=== PATIENT | male | born 1985 | race Caucasian/White ===

== ENCOUNTER → 2017-12-29 | Outpatient (CLI) | payer BC | LOC: GMATM 14:10 | PROVIDERS: ATTEND Nurse Practitioner Family | DX: R10.13 Epigastric pain (principal) ==

== ENCOUNTER 2018-05-14 23:53 | Emergency (ER) | payer BC ==
[2018-05-14] MEDS ORDERED: SODIUM CHLORIDE 0.9% 1000ML 1,000 ML IVS PRN (23:57)
[2018-05-14] MEDS ORDERED: SODIUM CHLORIDE 0.9% (FLUSH) 10 ML SYG IV PRN (23:57)
[2018-05-14] MEDS ORDERED: ONDANSETRON INJ 4 MG/2 ML VIAL IV ONE (23:57)
--- NOTE | 2018-05-15 00:05 | ED.PDOC ---
History of Present Illness - General Chief Complaint: Abdominal Pain Stated Complaint: sharp abd pain Time Seen by Provider: 05/15/18 00:05 Information Source: patient Exam Limitations: no limitations - History of Present Illness Initial Comments: Javy Perales 33 y/o male stated that he had sudden onset of sharp mid abdominal pains about 30 minutes ago no radiating followed by 2 episodes of n/ v.No diarrhea,no dysuria,or hematuria.had history of passing out kidney stones in the past.Last one about 2 1/2 weeks ago but stated does not feel its kidney stone.Ate 2 hours ago but felt no pain immediately after eating.CT abd/p- diffuse hepatic steatosis,no gallstones,bilateral nephrolithiasis non obstructing,done last week.Has appointment with urologist 2017 Abdominal Pain Onset Location: other - mid abdomen Pain Radiation: no radiation Quality: sharpness, steady Timing/Duration: 1-3 hours Improving Factors: nothing Associated Symptoms: diaphoresis Review of Systems - Review of Systems Constitutional: States: no symptoms reported EENTM: States: no symptoms reported Respiratory: States: no symptoms reported Cardiology: States: no symptoms reported Gastrointestinal/Abdominal: States: see HPI Genitourinary: States: no symptoms reported Musculoskeletal: States: no symptoms reported Skin: States: no symptoms reported Neurological: States: no symptoms reported Endocrine: States: no symptoms reported Hematologic/Lymphatic: States: no symptoms reported Past Medical History (General) - Patient Medical History Hx Other PMH: Yes - nephrolithiasis Surgical History: no surgical history - Social History Hx Tobacco Use: No Hx Alcohol Use: No Hx Substance Use: No Hx Physical Abuse: No Hx Emotional Abuse: No Family Medical History - Family History Father Hx Family Hypertension: Yes Hx Family Diabetes: Yes Hx Family;Other: kidney stone Mother Hx Family Hypertension: Yes - pulmonary Physical Exam - Physical Exam General Appearance: Alert, Comfortable, No apparent distress Eyes, Ears, Nose, Throat Exam: PERRL/EOMI, normal ENT inspection Neck: non-tender, full range of motion, supple, normal inspection Respiratory: chest non-tender, lungs clear, normal breath sounds Cardiovascular/Chest: normal peripheral pulses, regular rate, rhythm, no murmur Peripheral Pulses: No deficit Gastrointestinal/Abdominal: normal bowel sounds, non tender, soft, no organomegaly Back Exam: no CVA tenderness, no vertebral tenderness Extremity: no pedal edema, no calf tenderness Neurologic: alert, oriented x 3 Skin Exam: normal color, warm/dry Progress - Progress Progress: 05/15/18 00:36 Vital Signs - 8 hr 05/14/18 23:59 Temperature 96.2 F L Pulse Rate [ 74 left] Respiratory 18 Rate Blood Pressure 146/73 [left] O2 Sat by Pulse 99 Oximetry 05/15/18 03:19 feeling better using his cellphone. - Results/Orders Results/Orders: 05/14/18 23:57 IV Care:Saline Lock per Protoc QSHIFT Sodium Chloride 0.9% (Flush) [Saline Flush Syringe] 10 ml IV PRN PRN Sodium Chloride 0.9% 1000ML [Ns 1000 ml] 1,000 ml IVS .QD EKG STAT 05/15/18 00:34 Hold Metformin x 48Hrs [id number] 05/15/18 01:27 Strain Urine PRN 05/15/18 23:57 EKG STAT Laboratory Results - last 24 hr 05/14/18 05/14/18 05/15/18 23:57 23:57 00:04 WBC 11.5 H RBC 4.85 Hgb 14.9 Hct 43.6 MCV 89.9 MCH 30.7 MCHC 34.2 RDW 13.1 Plt Count 219 MPV 10.1 Absolute Neuts (auto) 7.40 H Absolute Lymphs (auto) 2.90 Absolute Monos (auto) 0.90 H Absolute Eos (auto) 0.20 Absolute Basos (auto) 0.10 Neutrophils % 64.6 Lymphocytes % 25.7 Monocytes % 7.6 Eosinophils % 1.7 Basophils % 0.4 Sodium 142 Potassium 3.6 Chloride 107 Carbon Dioxide 25 Anion Gap 13.6 BUN 15 Creatinine 1.20 BUN/Creatinine Ratio 12.5 Random Glucose 161 H Serum Osmolality 287.4 Calcium 9.4 Total Bilirubin 0.8 Direct Bilirubin 0.2 Indirect Bilirubin 0.6 AST 35 ALT 54 Alkaline Phosphatase 119 Creatine Kinase CK-MB (CK-2) CK-MB (CK-2) % Troponin I Serum Total Protein 8.0 Albumin 4.3 Amylase 79 Lipase 48 Urine Color Yellow Urine Appearance Clear Urine pH 5.5 Ur Specific [place] >= 1.030 Urine Protein Trace Urine Glucose (UA) Negative Urine Ketones Trace Urine Blood Negative Urine Nitrite Negative Urine Bilirubin Small H Urine Urobilinogen 0.2 Ur Leukocyte Esterase Negative Urine RBC 0-1 Urine WBC 1-3 Ur Epithelial Cells 0 Urine Bacteria 0 Urine Mucus Small Urine Opiates Screen Urine Barbiturates Ur Phencyclidine Scrn U Amphetamin/Meth Scrn U Benzodiazepines Scrn U Cocaine Metab Screen U Cannabinoids Screen Ethyl Alcohol 05/15/18 05/15/18 05/15/18 00:18 00:24 00:25 WBC RBC Hgb Hct MCV MCH MCHC RDW Plt Count MPV Absolute Neuts (auto) Absolute Lymphs (auto) Absolute Monos (auto) Absolute Eos (auto) Absolute Basos (auto) Neutrophils % Lymphocytes % Monocytes % Eosinophils % Basophils % Sodium Potassium Chloride Carbon Dioxide Anion Gap BUN Creatinine BUN/Creatinine Ratio Random Glucose Serum Osmolality Calcium Total Bilirubin Direct Bilirubin Indirect Bilirubin AST ALT Alkaline Phosphatase Creatine Kinase 190 H CK-MB (CK-2) 2.0 CK-MB (CK-2) % Not Reportable Troponin I < 0.02 Serum Total Protein Albumin Amylase Lipase Urine Color Urine Appearance Urine pH Ur Specific [place] Urine Protein Urine Glucose (UA) Urine Ketones Urine Blood Urine Nitrite Urine Bilirubin Urine Urobilinogen Ur Leukocyte Esterase Urine RBC Urine WBC Ur Epithelial Cells Urine Bacteria Urine Mucus Urine Opiates Screen Positive H Urine Barbiturates Negative Ur Phencyclidine Scrn Negative U Amphetamin/Meth Scrn Negative U Benzodiazepines Scrn Negative U Cocaine Metab Screen Negative U Cannabinoids Screen Negative Ethyl Alcohol < 5.40 - EKG/XRAY/CT EKG: Sinus, no ST T wave changes Comments: HR-75 CT Ordered: Yes - abd/p-2mm right proximal ureteral calculus Departure - Departure Clinical Impression: Ureteral calculus, right Abdominal pain Qualifiers: Abdominal location: upper abdomen, unspecified Qualified Code(s): R10.10 - Upper abdominal pain, unspecified Time of Disposition: 03:21 Disposition: Discharge to Home or Self Care Condition: Good Departure Forms: ED Discharge - Pt. Copy, Patient Portal Self Enrollment Diet: other - drink extra fluids Referrals: Matty Bennett MD [Primary Care Provider] - 1-2 Weeks Prescriptions: Acetamin W/Cod #3 Tab [Tylenol w/CODEINE #3] 1 ea PO Q6HRS PRN #14 tab PRN Reason: Pain Ketorolac Tromethamine [Toradol Tabs] 10 mg PO TID #10 tab Home Medications: Ambulatory Orders Acetamin W/Cod #3 Tab [Tylenol w/CODEINE #3] 1 ea PO Q6HRS PRN #14 tab 04/25/18 Sulfamethoxazole-Trimethoprim [Bactrim Ds 800-160 mg] 1 tablet PO BID 7 Days # 14 tablet 04/25/18 Tamsulosin HCl [Flomax] 0.4 mg PO DAILY #5 cap 04/25/18 Acetamin W/Cod #3 Tab [Tylenol w/CODEINE #3] 1 ea PO Q6HRS PRN #14 tab 05/15/18 Ketorolac Tromethamine [Toradol Tabs] 10 mg PO TID #10 tab 05/15/18 Additional Instructions: Keep appointment with urologist 2017,strain urine,return to ER as needed
[2018-05-15] MEDS ORDERED: PROMETHAZINE HCL INJ 25 MG/ML VIAL IM ONE (00:06)
[2018-05-15] MEDS ORDERED: MORPHINE SULFATE INJ 10 MG/ML VIAL IV ONE ×3 (00:06→01:09)
[2018-05-15] MEDS ORDERED: PANTOPRAZOLE INJECTION 80 MG in SODIUM CHLORIDE 0.9% 100ML 80 ML IVPB ONE (01:14)
--- NOTE | 2018-05-15 01:15 | RAD ---
EXAM DESCRIPTION: Chest,1 View CLINICAL HISTORY:33 years Male, abdominal pain Comparison: None FINDINGS: No focal lung consolidation. No pleural effusion. No pneumothorax. Cardiac and mediastinal silhouette is unremarkable. No acute osseous abnormality. Soft tissues are unremarkable. IMPRESSION: No acute findings. No focal lung consolidation. Electronically signed by: Minor Pham DO 05/15/2018 1:14 AM CDT
[2018-05-15] MEDS ORDERED: SUCRALFATE 1 GM/10 ML 1 GM UD PO ONE (01:17)
[2018-05-15] MEDS ORDERED: ALUM & MAG HYDROX-SIMETHICONE 30 ML, LIDOCAINE VISCOUS 2% 15 ML PO ONE ×2 (01:17)
[2018-05-15] MEDS ORDERED: PANTOPRAZOLE SODIUM IV 40 MG VIAL ONE (01:19)
[2018-05-15] MEDS ORDERED: ALUM & MAG HYDROX-SIMETHICONE 30 ML UD ONE (01:19)
[2018-05-15] MEDS ORDERED: SODIUM CHLORIDE 0.9% 100ML 100 ML IVPB ONE (01:19)
[2018-05-15] MEDS ORDERED: LIDOCAINE HCL 2% (MOUTH-THROAT) 15 ML UD ONE (01:19)
--- NOTE | 2018-05-15 01:19 | CT ---
EXAM DESCRIPTION: Abdomen/Pelvis w/Contrast CLINICAL HISTORY:33 years Male, abdominal pain Comparison: None TECHNIQUE: Contiguous axial images of the abdomen and pelvis were obtained followed by reconstruction images. This exam was performed according to our departmental dose-optimization program, which includes automated exposure control, adjustment of the mA and/or kV according to patient size and/or use of iterative reconstruction technique. FINDINGS: Lung bases: Lung bases are clear. Heart: Visualized heart is within normal limits in size. Liver:Diffuse low-attenuation throughout the liver consistent with hepatocellular disease/fatty infiltration. No focal liver lesion seen. Gallbladder:Unremarkable. No gallstones. No gallbladder wall thickening or pericholecystic fluid. Spleen:Unremarkable Pancreas: Pancreas is unremarkable. Adrenal glands:Within normal limits. Kidneys/ureters: 2 mm calculus in the proximal right ureter. No hydronephrosis. No nephrolithiasis or hydronephrosis on the left. 1 mm calculus in the superior right renal pole. Bladder:Unremarkable. Pelvic organs: No acute abnormality Vascular structures: within normal limits Peritoneum: No free fluid. Lymph nodes: No abnormal lymph nodes. Stomach/small bowel/colon: Stomach is unremarkable. Small bowel is unremarkable. Colon is unremarkable. Appendix: No evidence of appendicitis. Bones: No acute osseous abnormality. Soft tissues: Unremarkable.. IMPRESSION: 2 mm calculus in the proximal right ureter. No significant hydronephrosis. Electronically signed by: Minor Pham DO 05/15/2018 1:18 AM CDT
[2018-05-15] MEDS ORDERED: KETOROLAC TROMETHAMINE INJ 30 MG/ML VIAL IV ONE (01:22)
[2018-05-15] MEDS ORDERED: TAMSULOSIN 0.4 MG CAP PO ONE (01:27)
[2018-05-15] MEDS ORDERED: LACTATED RINGERS 1,000 ML IVS ONE (01:33)
[2018-05-15] MEDS ORDERED: HYDROCOD/APAP 10/325 (ER DISP) # 3 tablets PO ONE (03:21)
[2018-05-15 03:24] VITALS: BP 106/80; TEMP 97.8; O2SAT 97
== END 2018-05-15 03:31 | disposition home or self-care (01) ==
LOC: ER 23:53
DX: N20.1 Calculus of ureter (principal); R10.10 Upper abdominal pain, unspecified; Z87.442 Personal history of urinary calculi
CPT/HCPCS: 36415; 71045; 74177; 80048; 80076; 80307; 80320; 81001; 82150; 82550; 82553; 83690; 84484; 85025; 93005; J1885; J2270; J2550; J7030; J7050; J7120

== ENCOUNTER → 2020-02-20 | Outpatient (CLI) | payer BC | LOC: GMAM 14:17 | PROVIDERS: ATTEND Family Medicine | DX: Z00.00 Encounter for general adult medical examination without abnormal findings (principal) ==